=== PATIENT | female | born 1955 | race American Indian/Alaskan Native ===

== ENCOUNTER 2018-06-04 12:22 | Emergency (ER) | payer MEDICARE, OTHER ==
[2018-06-04 12:36] VITALS: BP 148/88
[2018-06-04] MEDS ORDERED: TORADOL IM ONE (13:31)
--- NOTE | 2018-06-04 14:15 | Emergency Department Report ---
ED Back Pain/Injury HPI - General Chief Complaint: Back Pain/Injury Stated Complaint: LOWER BACK PAIN Time Seen by Provider: 06/04/18 13:27 Source: patient Limitations: No Limitations - History of Present Illness Initial Comments: This is a 63-year-old female nontoxic, well nourished in appearance, no acute signs of distress presents to the ED with c/o of acute on chronic lower back pain. Patient stated that the past 2 days he was moving and developed this pain. Patient states has history of sciatica nerve pain which is similar symptoms as today. Patient states that pain radiates through to his left lower extremity. Patient denies any trauma. Denies any bladder or bowel instability. Patient denies any urinary symptoms. Denies any fever, chills, nausea, vomiting, headache, stiff neck, chest pain or shortness of breath. Patient denies any numbness or tingling. Denies any allergies. MD Complaint: back pain -: days(s) (2) Similar Symptoms Previously: Yes Place: home Radiation: left leg Severity: mild Severity scale (0 -10): 8 Quality: aching Consistency: intermittent Improves With: immobilization, supine, sitting upright Worsens With: movement, walking Context: while lifting, turning/twisting Associated Symptoms: denies other symptoms. denies: confusion, weakness, chest pain, numbness, difficulty walking, cough, difficulty urinating, diaphoresis, incontinence, fever/chills, constipation, headaches, abdominal pain, loss of appetite, malaise, nausea/vomiting, rash, seizure, shortness of breath, syncope - Related Data Home Medications Medication Instructions Recorded Confirmed Last Taken Dabigatran [Pradaxa] 150 mg PO DAILY 05/24/14 06/03/14 05/28/14 09:00 Digoxin [Digox] 1 tab PO DAILY 05/24/14 06/03/14 06/03/14 04:30 Ezetimibe [Zetia] 10 mg PO DAILY 05/24/14 06/03/14 06/02/14 21:00 Furosemide 20 mg PO DAILY 05/24/14 06/03/14 06/02/14 21:00 Insulin Lispro [Humalog] 35 units SQ BID 05/24/14 06/03/14 06/01/14 22:00 Losartan/Hydrochlorothiazide 1 tab PO DAILY 05/24/14 06/03/1414 04:30 [Hyzaar 100-25 Tablet] Metformin HCl [metFORMIN ER] 500 mg PO BID 05/24/14 06/03/14 06/02/14 21:00 amLODIPine [Norvasc] 5 mg PO DAILY 05/24/14 06/03/14 06/03/14 04:30 Previous Rx's Medication Instructions Recorded Last Taken Type Naproxen [Naprosyn TAB] 500 mg PO BID PRN #60 tablet 06/04/18 Unknown Rx Allergies Allergy/AdvReac Type Severity Reaction Status Date / Time No Known Allergies Allergy Verified 06/04/18 12:34 ED Review of Systems ROS: Stated complaint: LOWER BACK PAIN Other details as noted in HPI Constitutional: denies: chills, fever Eyes: denies: eye pain, eye discharge, vision change ENT: denies: ear pain, throat pain Respiratory: denies: cough, shortness of breath, wheezing Cardiovascular: denies: chest pain, palpitations Endocrine: no symptoms reported Gastrointestinal: denies: abdominal pain, nausea, diarrhea Genitourinary: denies: urgency, dysuria, discharge Musculoskeletal: back pain. denies: joint swelling, arthralgia Skin: denies: rash, lesions Neurological: denies: headache, weakness, paresthesias Psychiatric: denies: anxiety, depression Hematological/Lymphatic: denies: easy bleeding, easy bruising ED Past Medical Hx - Past Medical History Hx Hypertension: Yes Hx Diabetes: Yes (12YRS) - Surgical History Hx Open Heart Surgery: Yes (CABG) - Social History Smoking Status: Never Smoker Substance Use Type: None - Medications Home Medications: Home Medications Medication Instructions Recorded Confirmed Last Taken Type Dabigatran [Pradaxa] 150 mg PO DAILY 05/24/14 06/03/14 05/28/14 09:00 History Digoxin [Digox] 1 tab PO DAILY 05/24/14 06/03/14 06/03/14 04:30 History Ezetimibe [Zetia] 10 mg PO DAILY 05/24/14 06/03/14 06/02/14 21:00 History Furosemide 20 mg PO DAILY 05/24/14 06/03/14 06/02/14 21:00 History Insulin Lispro [Humalog] 35 units SQ BID 05/24/14 06/03/14 06/01/14 22:00 History Losartan/Hydrochlorothiazide 1 tab PO DAILY 05/24/14 06/03/14 06/03/14 04:30 History [Hyzaar 100-25 Tablet] Metformin HCl [metFORMIN ER] 500 mg PO BID 05/24/14 06/03/14 06/02/14 21:00 History amLODIPine [Norvasc] 5 mg PO DAILY 05/24/14 06/03/14 06/03/14 04:30 History Naproxen [Naprosyn TAB] 500 mg PO BID PRN #60 tablet 06/04/18 Unknown Rx ED Physical Exam - General Limitations: No Limitations General appearance: alert, in no apparent distress - Head Head exam: Present: atraumatic, normocephalic - Eye Eye exam: Present: normal appearance Pupils: Present: normal accommodation - ENT ENT exam: Present: normal exam, mucous membranes moist - Neck Neck exam: Present: normal inspection, full ROM. Absent: tenderness, meningismus, lymphadenopathy - Respiratory Respiratory exam: Present: normal lung sounds bilaterally. Absent: respiratory distress, wheezes, rales, rhonchi, stridor, chest wall tenderness, accessory muscle use, decreased breath sounds, prolonged expiratory - Cardiovascular Cardiovascular Exam: Present: regular rate, normal rhythm, normal heart sounds. Absent: bradycardia, tachycardia, irregular rhythm, systolic murmur, diastolic murmur, rubs, gallop - GI/Abdominal GI/Abdominal exam: Present: soft, normal bowel sounds. Absent: distended, tenderness, guarding, rebound, rigid, diminished bowel sounds - Rectal Rectal exam: Present: deferred - Extremities Exam Extremities exam: Present: normal inspection, full ROM, normal capillary refill. Absent: tenderness - Back Exam Back exam: Present: normal inspection, full ROM, paraspinal tenderness (lumbar paraspinal area). Absent: tenderness, CVA tenderness (R), CVA tenderness (L), muscle spasm, vertebral tenderness, rash noted - Neurological Exam Neurological exam: Present: alert, oriented X3, normal gait - Psychiatric Psychiatric exam: Present: normal affect, normal mood - Skin Skin exam: Present: warm, dry, intact, normal color. Absent: rash ED Course Vital Signs 06/04/18 12:34 Temperature 97.6 F Pulse Rate 60 Respiratory 18 Rate Blood Pressure 148/88 O2 Sat by Pulse 97 Oximetry - Reevaluation(s) Reevaluation #1: 06/04/18 14:11 Patient is speaking in full sentences with no signs of distress noted. ED Medical Decision Making - Medical Decision Making This is a 63-year-old female that presents with low back strain. Patient is stable was examined by me. There is no spinal tenderness. There is no cauda equina syndrome during examination. No bladder or bowel instability. Patient received Toradol 30 mg IM in the ED which preceded his symptoms has resolved and subsided. Patient is discharged with Naproxen. Patient was referred to Follow-up with a primary care doctor in 3-5 days or if symptoms worsen and continue return to emergency room as soon as possible. At time of discharge, the patient does not seem toxic or ill in appearance. No acute signs of distress noted. Patient agrees to discharge treatment plan of care. No further questions noted by the patient. This chart is dictated with using [employer] Critical care attestation.: If time is entered above; I have spent that time in minutes in the direct care of this critically ill patient, excluding procedure time. ED Disposition Clinical Impression: Low back strain Qualifiers: Encounter type: initial encounter Qualified Code(s): S39.012A - Strain of muscle, fascia and tendon of lower back, initial encounter Disposition: DC- TO HOME OR SELFCARE Is pt being admited?: No Does the pt Need Aspirin: No Condition: Stable Instructions: Low Back Strain (ED) Additional Instructions: Follow-up with your primary care doctor in 3-5 days or if symptoms worsen such as bladder or bowel stability, chest pain, short of breath, numbness or tingling sensation in extremities, headache, dizziness, visual changes, nausea vomiting, or abdominal pain, return back to emergency room as was possible. Prescriptions: Naproxen [Naprosyn TAB] 500 mg PO BID PRN #60 tablet PRN Reason: Pain , Severe (7-10) Referrals: PRIMARY CARE, [Primary Care Provider] - 3-5 Days SHERIN LE MD [Staff Physician] - 3-5 Days [facility] [Outside] - 3-5 Days [facility] [Outside] - 3-5 Days Forms: Work/School Release Form(ED)
== END 2018-06-04 14:32 | disposition home or self-care (01) ==
LOC: ED 12:22
DX: S39.012A Strain of muscle, fascia and tendon of lower back, initial encounter (principal); I10 Essential (primary) hypertension; E11.9 Type 2 diabetes mellitus without complications; Z95.1 Presence of aortocoronary bypass graft; X50.9XXA Other and unspecified overexertion or strenuous movements or postures, initial encounter; Y93.89 Activity, other specified; Y92.89 Other specified places as the place of occurrence of the external cause; Y99.8 Other external cause status
CPT/HCPCS: 96372; 99282; J1885

== ENCOUNTER 2019-05-01 12:25 | Emergency (ER) | payer MEDICARE, OTHER ==
[2019-05-01 13:33] VITALS: BP 136/70
--- NOTE | 2019-05-01 13:34 | Emergency Department Report ---
Chief Complaint: Dental/Oral Stated Complaint: TOOTHACHE Time Seen by Provider: 05/01/19 13:29 - HPI History of Present Illness: Tooth pain for 3 weeks. MSE screening note: Focused history and physical exam performed. Due to findings the following was ordered: ED Disposition for MSE Clinical Impression: Tooth ache Disposition: MED SCREENING EXAM-LEFT Is pt being admited?: No Does the pt Need Aspirin: No Condition: Stable Referrals: LYN DOVE MD [Primary Care Provider] - 3-5 Days [facility] [Outside] - 3-5 Days [facility] [Outside] - 3-5 Days
--- NOTE | 2019-05-01 13:39 | Emergency Department Report ---
ED ENT HPI - General Chief complaint: Dental/Oral Stated complaint: TOOTHACHE Time Seen by Provider: 05/01/19 13:29 Source: patient Mode of arrival: Ambulatory Limitations: No Limitations - History of Present Illness Initial comments: 64 y/o female. Tooth pain for 3 weeks. No fever no chill no swelling. MD complaint: tooth pain Onset/Timin -: week(s) Location: tooth # (9) Severity: moderate Consistency: intermittent Associated Symptoms: toothache. denies: gum swelling - Related Data Home Medications Medication Instructions Recorded Confirmed Last Taken Dabigatran [Pradaxa] 150 mg PO DAILY 05/24/14 06/03/14 05/28/14 09:00 Digoxin [Digox] 1 tab PO DAILY 05/24/14 06/03/14 06/03/14 04:30 Ezetimibe [Zetia] 10 mg PO DAILY 05/24/14 06/03/14 06/02/14 21:00 Furosemide 20 mg PO DAILY 05/24/14 06/03/14 06/02/14 21:00 Insulin Lispro [Humalog] 35 units SQ BID 05/24/14 06/03/14 06/01/14 22:00 Losartan/Hydrochlorothiazide 1 tab PO DAILY 05/24/14 06/03/14 06/03/14 04:30 [Hyzaar 100-25 Tablet] Metformin HCl [metFORMIN ER] 500 mg PO BID 05/24/14 06/03/14 06/02/14 21:00 amLODIPine [Norvasc] 5 mg PO DAILY 05/24/14 06/03/14 06/03/14 04:30 Previous Rx's Medication Instructions Recorded Last Taken Type Naproxen [Naprosyn TAB] 500 mg PO BID PRN #60 tablet 06/04/18 Unknown Rx Acetaminophen/Codeine [Tylenol 1 tab PO Q6H PRN #12 tab 02/01/19 Unknown Rx /Codeine # 3 tab] Amoxicillin/K Clav Tab [Augmentin 1 tab PO Q12HR #20 tab 02/01/19 Unknown Rx 875 mg] Chlorhexidine Mouthwash [Peridex] 15 ml MM BID #1 bottle 02/01/19 Unknown Rx Ibuprofen [Motrin] 600 mg PO Q8H PRN #20 tablet 02/01/19 Unknown Rx Ibuprofen [Motrin 600 MG tab] 600 mg PO Q8H PRN #20 tablet 05/01/19 Unknown Rx Allergies Allergy/AdvReac Type Severity Reaction Status Date / Time No Known Allergies Allergy Verified 06/04/18 12:34 ED Dental HPI - General Chief complaint: Dental/Oral Stated complaint: TOOTHACHE Time Seen by Provider: 05/01/19 13:29 Source: patient Mode of arrival: Ambulatory Limitations: No Limitations - Related Data Home Medications Medication Instructions Recorded Confirmed Last Taken Dabigatran [Pradaxa] 150 mg PO DAILY 05/24/14 06/03/14 05/28/14 09:00 Digoxin [Digox] 1 tab PO DAILY 05/24/14 06/03/14 06/03/14 04:30 Ezetimibe [Zetia] 10 mg PO DAILY 05/24/14 06/03/14 06/02/14 21:00 Furosemide 20 mg PO DAILY 05/24/14 06/03/14 06/02/14 21:00 Insulin Lispro [Humalog] 35 units SQ BID 05/24/14 06/03/14 06/01/14 22:00 Losartan/Hydrochlorothiazide 1 tab PO DAILY 05/24/14 06/03/14 06/03/14 04:30 [Hyzaar 100-25 Tablet] Metformin HCl [metFORMIN ER] 500 mg PO BID 05/24/14 06/03/14 06/02/14 21:00 amLODIPine [Norvasc] 5 mg PO DAILY 05/24/14 06/03/14 06/03/14 04:30 Previous Rx's Medication Instructions Recorded Last Taken Type Naproxen [Naprosyn TAB] 500 mg PO BID PRN #60 tablet 06/04/18 Unknown Rx Acetaminophen/Codeine [Tylenol 1 tab PO Q6H PRN #12 tab 02/01/19 Unknown Rx /Codeine # 3 tab] Amoxicillin/K Clav Tab [Augmentin 1 tab PO Q12HR #20 tab 02/01/19 Unknown Rx 875 mg] Chlorhexidine Mouthwash [Peridex] 15 ml MM BID #1 bottle 02/01/19 Unknown Rx Ibuprofen [Motrin] 600 mg PO Q8H PRN #20 tablet 02/01/19 Unknown Rx Ibuprofen [Motrin 600 MG tab] 600 mg PO Q8H PRN #20 tablet 05/01/19 Unknown Rx Allergies Allergy/AdvReac Type Severity Reaction Status Date / Time No Known Allergies Allergy Verified 06/04/18 12:34 ED Review of Systems ROS: Stated complaint: TOOTHACHE Other details as noted in HPI Comment: All other systems reviewed and negative ED Past Medical Hx - Past Medical History Previous Medical History?: Yes Hx Hypertension: Yes Hx Diabetes: Yes (12YRS) Additional medical history: Afib - Surgical History Past Surgical History?: Yes Hx Open Heart Surgery: Yes (CABG) Additional Surgical History: tubal ligation, hysterectomy - Social History Smoking Status: Never Smoker Substance Use Type: None - Medications Home Medications: Home Medications Medication Instructions Recorded Confirmed Last Taken Type Dabigatran [Pradaxa] 150 mg PO DAILY 05/24/14 06/03/14 05/28/14 09:00 History Digoxin [Digox] 1 tab PO DAILY 05/24/14 06/03/14 06/03/14 04:30 History Ezetimibe [Zetia] 10 mg PO DAILY 05/24/14 06/03/14 06/02/14 21:00 History Furosemide 20 mg PO DAILY 05/24/14 06/03/14 06/02/14 21:00 History Insulin Lispro [Humalog] 35 units SQ BID 05/24/14 06/03/14 06/01/14 22:00 History Losartan/Hydrochlorothiazide 1 tab PO DAILY 05/24/14 06/03/14 06/03/14 04:30 History [Hyzaar 100-25 Tablet] Metformin HCl [metFORMIN ER] 500 mg PO BID 05/24/14 06/03/14 06/02/14 21:00 History amLODIPine [Norvasc] 5 mg PO DAILY 05/24/14 06/03/14 06/03/14 04:30 History Naproxen [Naprosyn TAB] 500 mg PO BID PRN #60 tablet 06/04/18 Unknown Rx Acetaminophen/Codeine [Tylenol 1 tab PO Q6H PRN #12 tab 02/01/19 Unknown Rx /Codeine # 3 tab] Amoxicillin/K Clav Tab [Augmentin 1 tab PO Q12HR #20 tab 02/01/19 Unknown Rx 875 mg] Chlorhexidine Mouthwash [Peridex] 15 ml MM BID #1 bottle 02/01/19 Unknown Rx Ibuprofen [Motrin] 600 mg PO Q8H PRN #20 tablet 02/01/19 Unknown Rx Ibuprofen [Motrin 600 MG tab] 600 mg PO Q8H PRN #20 tablet 05/01/19 Unknown Rx ED Physical Exam - General Limitations: No Limitations General appearance: alert, in no apparent distress - Head Head exam: Present: atraumatic, normocephalic - Eye Eye exam: Present: normal appearance - Expanded ENT Exam Expanded Teeth exam: Absent: fractured tooth #, gingival enlargement - Neck Neck exam: Present: normal inspection - Neurological Exam Neurological exam: Present: alert, oriented X3 - Skin Skin exam: Present: warm, dry, intact, normal color. Absent: rash ED Course Vital Signs 05/01/19 13:26 Temperature 97.9 F Pulse Rate 63 Respiratory 14 Rate Blood Pressure 136/70 [Left] O2 Sat by Pulse 98 Oximetry ED Medical Decision Making - Medical Decision Making 64 y/o female comes in 3 weeks history of tooth pain. Place patient on Ibuprofen and referral to Dentist. Critical care attestation.: If time is entered above; I have spent that time in minutes in the direct care of this critically ill patient, excluding procedure time. ED Disposition Clinical Impression: Tooth ache Disposition: DC-01 TO HOME OR SELFCARE Is pt being admited?: No Does the pt Need Aspirin: No Condition: Stable Instructions: Toothache (ED) Additional Instructions: take pain medication. Follow up with a dentist. Prescriptions: Ibuprofen [Motrin 600 MG tab] 600 mg PO Q8H PRN #20 tablet PRN Reason: Pain Referrals: [facility] [Outside] - 3-5 Days [facility] [Outside] - 3-5 Days LYN DOVE MD [Primary Care Provider] - 3-5 Days
== END 2019-05-01 14:00 | disposition home or self-care (01) ==
LOC: ED 12:25
DX: K08.89 Other specified disorders of teeth and supporting structures (principal); I10 Essential (primary) hypertension; E11.9 Type 2 diabetes mellitus without complications; Z95.1 Presence of aortocoronary bypass graft; Z98.51 Tubal ligation status; Z90.710 Acquired absence of both cervix and uterus; Z79.4 Long term (current) use of insulin; Z79.899 Other long term (current) drug therapy
CPT/HCPCS: 99281

== ENCOUNTER 2022-04-06 05:29 | Day surgery (SDC) | payer MEDICARE, OTHER ==
[2022-04-02 09:53] LABS: Hematocrit 37.4 % (30.3-42.9); Hemoglobin 12.2 gm/dl (10.1-14.3); Mean Corpuscular HGB Conc 33 % (30-34); Mean Corpuscular Volume 85 fl (79-97); Platelet Count 187 K/mm3 (140-440); Red Blood Count 4.43 M/mm3 (3.65-5.03); Red Cell Distribution Width 16.2 % (13.2-15.2)
[2022-04-02 10:06] LABS: Blood Urea Nitrogen 12 mg/dL (7-17); Calcium 9.4 mg/dL (8.4-10.2); Hemolysis Index 2
[2022-04-02 10:18] LABS: BUN/Creatinine Ratio 17
--- NOTE | 2022-04-02 15:11 | Anesthesia Consultation ---
Anesthesia Consult and Med Hx Date of service: 04/06/22 - Airway Anesthetic Teeth Evaluation: Chipped ROM Head & Neck: Adequate Mental/Hyoid Distance: Adequate Mallampati Class: Class II Intubation Access Assessment: Good - Pre-Operative Health Status ASA Pre-Surgery Classification: ASA3 Proposed Anesthetic Plan: General Nerve Block: TAP - Pulmonary Hx Smoking: No Hx Sleep Apnea: Yes (DX SLEEP APNEA WITH CPAP USE) - Cardiovascular System Hx Hypertension: Yes (X 17 YRS) Hx Heart Murmur: Yes - Central Nervous System Hx Back Pain: Yes Hx Psychiatric Problems: Yes (Fibromyalgia) - Gastrointestinal Hx Gastroesophageal Reflux Disease: No - Endocrine Hx Non-Insulin Dependent Diabetes: Yes - Hematic Hx Anemia: No - Other Systems Hx Cancer: No Hx Obesity: No - Additional Comments Anesthesia Medical History Comments: Had NST 03/31/22; results and cardiac clearance pending
[2022-04-06] MEDS ORDERED: ACETAMINOPHEN 325 MG TAB PO SCH (06:00)
[2022-04-06] MEDS ORDERED: MIDAZOLAM 2 MG/2 ML INJ IV SCH (06:00)
[2022-04-06] MEDS ORDERED: CELECOXIB 200 MG CAP PO SCH (06:00)
[2022-04-06] MEDS ORDERED: MAGNESIUM OXIDE 400 MG TAB PO SCH (06:00)
[2022-04-06] MEDS ORDERED: LACTATED RINGERS 1,000 ML IV SCH (06:00)
[2022-04-06] MEDS ORDERED: fentaNYL 100 MCG/2 ML INJ IV SCH (06:00)
[2022-04-06 06:54] LABS: INR 0.98 (0.87-1.13)
[2022-04-06 06:55] LABS: Partial Thromboplastin Time 28.6 Sec. (24.2-36.6)
[2022-04-06] MEDS ORDERED: ONDANSETRON 4 MG/2 ML INJ ONE (07:19)
[2022-04-06] MEDS ORDERED: LIDOCAINE MPF (2%) 20 MG/1 ML VIAL 5 ML ONE (07:19)
[2022-04-06] MEDS ORDERED: dexAMETHasone 20 MG/5 ML VIAL ONE (07:19)
[2022-04-06] MEDS ORDERED: ROCURONIUM 50 MG/5 ML INJ IV ONE (07:19)
[2022-04-06] MEDS ORDERED: fentaNYL 100 MCG/2 ML INJ ONE (07:20)
[2022-04-06] MEDS ORDERED: propofoL 200 MG/20 ML VIAL IV ONE (07:20)
[2022-04-06] MEDS ORDERED: BUPIVACAINE/PF (0.25%) 2.5 MG/ML 30 ML VIAL INFILTRATI ONE (07:21)
[2022-04-06] MEDS ORDERED: LIDOCAINE (1%) 10 MG/1 ML VIAL 20 ML MDV ONE ×2 (07:22→07:30)
[2022-04-06] MEDS ORDERED: dexAMETHasone 4 MG/ML VIAL ONE (07:22)
[2022-04-06] MEDS ORDERED: NIFEdipine XL 60 MG TAB PO NR (07:25)
--- NOTE | 2022-04-06 07:28 | Anesthesia Day of Surgery ---
Anesthesia Day of Surgery - Day of Surgery Patient Examined: Yes Patient H&P Reviewed: Yes Patient is NPO: Yes Cardiac Clearance: Yes
[2022-04-06] MEDS ORDERED: BUPIVACAINE/PF (0.5%) 5 MG/1 ML 30 ML VIAL INFILTRATI ONE (07:30)
[2022-04-06] MEDS ORDERED: ePHEDrine SULFATE 50 MG/1 ML INJ ONE (08:25)
[2022-04-06] MEDS ORDERED: WATER FOR IRRIG STERILE 1,500 ML BOTTLE IR ONE (11:23)
[2022-04-06] MEDS ORDERED: SODIUM CHLORIDE 0.9% IRR 1,500 ML BOTTLE IR ONE (11:23)
--- NOTE | 2022-04-06 11:24 | Short Stay Summary ---
Short Stay Documentation Date of service: 04/06/22 - History Principal diagnosis: incisional hernia H&P: obtained from office - Allergies and Medications Current Medications: Allergies bupropion [From Wellbutrin] Allergy (Verified 03/30/22 14:15) Itching , RASH ibuprofen Allergy (Verified 03/30/22 14:15) Itching , RASH Home Medications Medication Instructions Recorded Confirmed Last Taken Type Digoxin [Digox] 0.125 mg PO DAILY 05/24/14 04/06/22 04/04/22 History Ezetimibe [Zetia] 10 mg PO DAILY 05/24/14 04/06/22 04/05/22 History Metformin HCl [metFORMIN ER] 500 mg PO DAILY 05/24/14 04/06/22 04/05/22 History Amiodarone HCl [Amiodarone 100 MG 100 mg PO Q48HR 04/02/22 04/06/22 04/04/22 History TAB] Apixaban [Eliquis] 5 mg PO BID 04/02/22 04/06/22 04/03/22 History AtorvaSTATin [Lipitor] 20 mg PO QHS 04/02/22 04/06/22 04/05/22 History Cyanocobalamin [Vitamin B-12] 1,000 mcg PO QMONTH 04/02/22 04/02/22 Unknown History HYDROcodone/APAP 5-325 [Jackson 1 each PO Q6HR PRN 04/02/22 04/02/22 Unknown History 5/325] NIFEdipine [Nifedipine ER] 60 mg PO DAILY 04/02/22 04/06/22 04/06/22 07:35 History Valsartan [Diovan] 80 mg PO DAILY 04/02/22 04/06/22 04/05/22 History allopurinoL [Zyloprim] 300 mg PO QDAY 04/02/22 04/06/22 04/05/22 History Active Medications Acetaminophen (Acetaminophen 325 Mg Tab) 650 mg PO ONCE COLBY Last Admin: 04/06/22 07:00 Dose: 650 mg Fentanyl (Fentanyl 100 Mcg/2 Ml Inj) 100 mcg IV ONCE COLBY Last Admin: 04/06/22 07:47 Dose: 100 mcg Lactated Ringer's (Lactated Ringers) 1,000 mls @ 100 mls/hr IV DIRECT COLBY Last Admin: 04/06/22 06:30 Dose: 100 mls/hr Magnesium Oxide (Magnesium Oxide 400 Mg Tab) 400 mg PO ONCE COLBY Last Admin: 04/06/22 07:00 Dose: 400 mg Methocarbamol (Methocarbamol 750 Mg Tab) 1,500 mg PO ONCE COLBY Last Admin: 04/06/22 07:00 Dose: 1,500 mg Midazolam HCl (Midazolam 2 Mg/2 Ml Inj) 2 mg IV PREOP COLBY Stop: 04/06/22 23:59 Last Admin: 04/06/22 07:47 Dose: 2 mg - Brief post op/procedure progress note Date of procedure: 04/06/22 Pre-op diagnosis: incisional hernia Post-op diagnosis: same Procedure: robotic assisted lysis of adhesions, incisional hernia repair with mesh Anesthesia: GETA, other (TAP block) Findings: 5cm x 5cm left upper abdominal incisional hernia containing small bowel. Small bowel densely adhered to hernia sac and abdominal wall adjacent to hernia. Omental and colonic adhesions to abdominal wall in epigastrum. Colonic adhesions to lower abdominal wall/pelvis Surgeon: RONALD NEFF Water Proofer: JANESSA QUIROZ Estimated blood loss: minimal Pathology: none Condition: stable Short Stay Discharge Plan Activity: other (no heavy lifting) Diet: low fat Wound: open to air, per your surgeon's advice Additional Instructions: SEE PRINTED INSTRUCTIONS Follow up with: KETURAH ANTONY MD [Primary Care Provider] - 7 Days RONALD NEFF DO [Staff Physician] - 14 Days Prescriptions: Gabapentin 300 mg PO BID #6 cap HYDROcodone/APAP 5-325 [Jackson 5-325 mg TAB] 1 each PO Q6H PRN #20 tab PRN Reason: Pain , Severe (7-10)
[2022-04-06] MEDS ORDERED: LACTATED RINGERS 1,000 ML ONE (11:29)
[2022-04-06] MEDS ORDERED: HYDROmorphone 0.5 MG/0.5 ML INJ IV PRN (12:52)
--- NOTE | 2022-04-06 13:10 | Post Anesthesia Evaluation ---
- Post Anesthesia Evaluation Patient Participated: Yes Airway Patent: Yes Stable Respiratory Function: Yes Nausea/Vomiting: No Temp > 96.8F: Yes Pain Manageable: Yes Adequeate Hydration: Yes Anesthesia Complications: No
[2022-04-06 15:07] VITALS: BP 139/70
--- NOTE | 2022-04-13 07:21 | Operative Report ---
Operative Report Operative Report: Date of procedure: 04/06/22 Pre-op diagnosis: incisional hernia Post-op diagnosis: same Procedure: robotic assisted lysis of adhesions, incisional hernia repair with mesh Anesthesia: GETA, other (TAP block) Findings: 5cm x 5cm left upper abdominal incisional hernia containing small bowel. Small bowel densely adhered to hernia sac and abdominal wall adjacent to hernia. Omental and colonic adhesions to abdominal wall in epigastrum. Colonic adhesions to lower abdominal wall/pelvis Surgeon: RONALD NEFF Purchasing Analyst: JANESSA QUIROZ Estimated blood loss: minimal Pathology: none Condition: stable HPI and indication: 67-year-old female who presents to surgery clinic for evaluation of an abdominal bulge. 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 This bulge has been present for some time and was reducible on exam. It was recommended that the hernia be repaired. All risk, benefits, alternatives surgery discussed with patient questions answered. It was recommended that the hernia be repaired robotically. Alternatives such as open versus laparoscopic repair were also discussed. The patient was in agreement and consent obtained. Procedure in detail: The patient was identified in the preoperative area and taken back to the operating room and placed on the operating room table in supine position. After anesthesia was induced, both arms were tucked with all bony prominences padded appropriately. The abdomen was then prepped and draped in usual sterile fashion and a timeout was performed. The patient had a TAP block performed by anesthesia preoperatively. A ashley incision was made in the left upper quadrant at Pierre's point through which a Veress needle was inserted. The Veress needle position was confirmed using the saline drop test and the abdomen insufflated to 15 mmHg without incident. A 5 mm incision was made in the right upper quadrant through which a 5 mm Optiview trocar was placed under direct visualization. The abdomen was inspected and there was no underlying injury to any of the abdominal structures. The Veress needle was identified and removed. A 12 mm balloon trocar was placed in the right lateral abdomen and an 8 mm robotic trocar in the right lower quadrant under direct visualization. The 5 mm right upper quadrant trocar was replaced with an 8 mm robotic trocar under direct visualization. The patient was tilted to the left and the robot docked. Initial examination of the abdomen revealed dense adhesions from the small bowel to the area of the hernia. There were also oment al and colonic adhesions to the abdominal wall in the epigastrium and to the falciform ligament. There was a colonic adhesions to the lower abdominal wall and pelvic area. A fenestrated bipolar was placed in arm #2 and a monopolar scissor in arm #1. The surgeon was then transferred to the console. I first started by performing adhesiolysis in order to get better visualization of the incisional hernia. Dissection was carried out very carefully using a combination of blunt dissection and electrocautery. The small bowel was meticulously dissected and examined after being released from the abdominal wall. There was no injury identified. The omental and colonic adhesions to the epigastric area were also dissected meticulously and hemostasis ensured along the way. The hernia was completely visualized and measured approximately 5 x 5 cm, this was measured with a ruler which was placed into the abdomen. It was decided to repair this with a 6 x [address] composite mesh. The mesh along with suture material was placed into the abdomen by the special education teaching assistant. Pressure in the abdomen was turned down to 8 mmHg. First the hernia defect was closed using a 0 VLoc running stitch x2. The mesh was then placed against the peritoneum with the coated side facing the bowel. The mesh was sutured into place circumferentially using 2-0 VLoc running stitches. The mesh laid flat wit h adequate overlap of the hernia. The remainder of the case was performed laparoscopically. All sharps, raytec, and ruler were removed under direct visualization. The 12 mm port was removed and the fascia closed with an interrupted 0-vicryl stitch using the Tyrel Angel device.. The right lower quadrant port fascia was also closed with an interrupted 0 Vicryl stitch using the Tyrel Angel device. The right upper quadrant port was removed and the abdomen desufflated. The skin incisions were closed with 4-0 Monocryl subcuticular stitches and skin glue. Once the glue was dry a 4 x 4 gauze was balled up and placed at the hernia site and secured with a Tegaderm. At the end of the case, all sponge, instrument, sharp counts were correct 2. An abdominal binder was applied to the patient. The patient was awoken from anesthesia, extubated and taken to PACU in stable condition.
== END 2022-04-06 13:50 | disposition home or self-care (01) ==
LOC: OR 05:29
PROVIDERS: ATTEND Surgery
DX: K43.2 Incisional hernia without obstruction or gangrene (principal); I48.11 Longstanding persistent atrial fibrillation; Z20.822 Contact with and (suspected) exposure to COVID-19; K66.0 Peritoneal adhesions (postprocedural) (postinfection); E66.01 Morbid (severe) obesity due to excess calories; F32.A Depression, unspecified; K21.9 Gastro-esophageal reflux disease without esophagitis; G43.909 Migraine, unspecified, not intractable, without status migrainosus; I89.8 Other specified noninfective disorders of lymphatic vessels and lymph nodes; I89.9 Noninfective disorder of lymphatic vessels and lymph nodes, unspecified; E78.5 Hyperlipidemia, unspecified; M79.7 Fibromyalgia; E11.9 Type 2 diabetes mellitus without complications; I10 Essential (primary) hypertension; G47.30 Sleep apnea, unspecified; M19.90 Unspecified osteoarthritis, unspecified site; Z79.899 Other long term (current) drug therapy; Z88.8 Allergy status to other drugs, medicaments and biological substances; Z98.51 Tubal ligation status; Z79.84 Long term (current) use of oral hypoglycemic drugs; Z98.84 Bariatric surgery status; Z98.49 Cataract extraction status, unspecified eye; Z96.81 Presence of artificial skin; Z90.710 Acquired absence of both cervix and uterus; Z98.890 Other specified postprocedural states; Z86.73 Personal history of transient ischemic attack (TIA), and cerebral infarction without residual deficits; Z68.24 Body mass index [BMI] 24.0-24.9, adult
CPT/HCPCS: 36415; 49654; 64488; 80048; 82962; 85027; 85610; 85730; C1781; J1100; J2250; J2405; J2704; J3010; J3490; J7120; U0003; 64450